=== PATIENT | female | born 1940 | race Caucasian/White ===

== ENCOUNTER 2017-07-25 21:18 | Emergency (ER) | payer MEDICAID, OTHER ==
[~2017-07-25] VITALS: Ht 160 cm; Wt 56.0 kg
[2017-07-25 21:22] VITALS: Ht 160 cm; Wt 56.0 kg
[2017-07-26] MEDS ORDERED: SULF1TAB31 PO (01:21)
[2017-07-26] MEDS ORDERED: CEPH250S33 PO (01:21)
[2017-07-26] MEDS ORDERED: [UNRECOGNIZED DRUG - OTHER] (01:21)
[2017-07-26] MEDS ORDERED: ENAL2.5T PO (01:21)
--- NOTE | 2017-07-26 01:24 | ERD ---
ER Documentation Chief Complaint Date/Time DATE: 07/26/17 TIME: 01:14 Chief Complaint Had incision and drainage done last here for reevaluation HPI 76-year-old female here in emergency department for reevaluation of the wound on the right lower leg, patient had an incision and drainage done 4 days ago, was diagnosed of an abscess after being back. Patient is currently on antibiotics, Keflex and Bactrim, they've been taking the medications but with only mild relief. Patient seems to have more swollen right lower leg, it seems to be not getting better per family. Patient does not have any fever or chills. Patient discussed the pain as throbbing pain, for/10 scale, and touching the area. Iodoform is still in place. ROS All systems reviewed and are negative except as per history of present illness. Medications Home Meds Reported Medications Cephalexin* (Cephalexin* Susp) Unknown Strength Susp.recon, PO Q6, #1 BOTTLE 07/26/17 Sulfamethoxazole/Trimethoprim* (Bactrim Ds* Tablet) Unknown Strength Tablet, PO DAILY, TAB 07/26/17 Enalapril Maleate* (Enalapril Maleate*) Unknown Strength Tablet, PO BID, TAB 07/26/17 [metformin-glimeperi] Unknown Strength No Conflict Check 07/26/17 Allergies Allergies: Coded Allergies: No Known Allergy (Unverified , 07/26/17) PMhx/Soc History of Surgery: Yes (cholecystectomy) Hx Miscellaneous Medical Probl: Yes (dM, HTN) Hx Alcohol Use: No Hx Substance Use: No Hx Tobacco Use: No Smoking Status: Never smoker FmHx Family History: diabetes Physical Exam Vitals Vital Signs Date Time Temp Pulse Resp B/P Pulse Ox O2 Delivery O2 Flow Rate FiO2 07/25/17 21:22 98.6 84 18 148/70 98 Physical Exam GENERAL: The patient is well developed and appropriate for usual state of health, in no apparent distress. CHEST: Clear to auscultation bilaterally. There are no rales, wheezes or rhonchi. HEART: Regular rate and rhythm. No murmurs, clicks, rubs or gallops. No S3 or S4. ABDOMEN: Soft, nontender and nondistended. Good bowel sounds. No rebound or guarding. No gross peritonitis. No gross organomegaly or masses. No Molina sign or McBurney point tenderness. BACK: No midline or flank tenderness. EXTREMITIES: Equal pulses bilaterally. There is no peripheral clubbing, cyanosis or edema. No focal swelling or erythema. Full range of motion. Grossly neurovascularly intact. NEURO: Alert and oriented. Cranial nerves 2-12 intact. Motor strength in all 4 extremities with 5/5 strength. Sensation grossly intact. Normal speech and gait. SKIN: Noted 3 cm diameter erythematous indurated area on the right lower leg, with iodoform in place, noted right lower leg swelling surrounding it. No fluctuance noted. There is no apparent rash or petechia. The skin is warm and dry. HEMATOLOGIC AND LYMPHATIC: There is no evidence of excessive bruising or lymphedema. No gross cervical, axillary, or inguinal lymphadenopathy. Results 24 hrs Current Medications Medications (Trade) Dose Ordered Sig/Raymundo Route PRN Reason Start Time Stop Time Status Last Admin Dose Admin Clindamycin HCl/ Dextrose (Cleocin 600 Mg/ D5W (Pmx)) 50 ml @ 50 mls/hr ONCE IVPB 07/26/17 01:30 07/26/17 02:29 Tramadol HCl (Ultram) 50 mg ONCE ONCE PO 07/26/17 01:30 07/26/17 01:31 Patient was given medication for pain here in emergency department, after treatment, patient verbalized feeling much better. Patient's pain is improved.IV clindamycin was given here in The emergency department, tolerated medication well. Procedures/MDM Medical decision making: Patient's symptoms most likely consistent with a soft tissue abscess, the dressing was changed, new iodoform was placed. No symptoms of any sepsis at this time, patient appears well and is hemodynamically stable, seems to be not improving after taking Bactrim and Keflex, will change antibiotics to clindamycin, patient was also given IV clindamycin here in emergency department. Patient was advised to return in 48 hours for reevaluation of symptoms and dressing change. The symptoms of any neurovascular compromise. Low suspicion for a myelitis. Low suspicion for any septic arthritis. Patient was given for clindamycin, tramadol for pain, ibuprofen for mild to moderate pain, is advised to follow-up here in 48 hours. Disposition: Home. Stable. Departure Diagnosis: Primary Impression: Soft tissue abscess Condition: Stable Patient Instructions: Abscess, Incision And Drainage Additional Instructions: return 2 days for recheck and dressing change, stop bactrim and keflex, start new antibiotics TANISHA STACK NP Jul 26, 2017 01:24
[2017-07-26] MEDS ORDERED: CLIN-73 PO (01:25)
[2017-07-26] MEDS ORDERED: IBUP400T22 PO (01:25)
[2017-07-26] MEDS ORDERED: TRAM50TA2 PO (01:25)
[2017-07-26] MEDS ORDERED: CLINDAMYCIN 600 MG/D5W (PMX) 50 ML IVPB SCH (01:30)
[2017-07-26] MEDS ORDERED: traMADol 50 MG TAB PO ONE (01:30)
== END 2017-07-26 04:11 | disposition home or self-care (01) ==
LOC: FTE 21:18
DX: L02.415 Cutaneous abscess of right lower limb (principal); E11.9 Type 2 diabetes mellitus without complications; I10 Essential (primary) hypertension
CPT/HCPCS: 96374; Z7502; Z7610

== ENCOUNTER 2017-07-28 18:24 | Emergency (ER) | payer OTHER ==
[~2017-07-28] VITALS: Ht 160 cm; Wt 74.6 kg
[~2017-07-28 18:24] MED LIST: CEPH250S33 PO; CLIN-73 PO; ENAL2.5T PO; IBUP400T22 PO; SULF1TAB31 PO; TRAM50TA2 PO; [UNRECOGNIZED DRUG - OTHER]
[2017-07-28 18:37] VITALS: Ht 160 cm; Wt 74.6 kg
--- NOTE | 2017-07-28 20:11 | ERD ---
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 Patient states that it is mildly painful and discharging. Foul odor. No fever, chills, abdominal pain, shortness of breath, chest pain. No skin changes. Has been taking antibiotics p.o. Was given IV antibiotics during last ER visit. Patient has no other complaints and describes no other associated manifestations. Nursing notes have been reviewed and are consistent with history given. (MATTHEW SANTO PA-C) ROS All systems reviewed and are negative except as per history of present illness. (CARROLL WARNER MD) Medications Home Meds Active Scripts Tramadol HCl (Tramadol HCl) 50 Mg Tablet, 50 MG PO Q6 for SEVERE PAIN LEVEL 7-10 , #20 TAB Prov:TANISHA STACK [employer] 07/26/17 Ibuprofen* (Motrin*) 400 Mg Tab, 400 MG PO Q6H Y for PAIN AND OR ELEVATED TEMP, #30 TAB Prov:TANISHA STACK [employer] 07/26/17 Clindamycin Hcl* (Clindamycin Hcl*) 300 Mg Capsule, 300 MG PO TID for 10 Days, CAP Prov:TANISHA STACK [employer] 07/26/17 Reported Medications Cephalexin* (Cephalexin* Susp) Unknown Strength Susp.recon, PO Q6, #1 BOTTLE 07/26/17 Sulfamethoxazole/Trimethoprim* (Bactrim Ds* Tablet) Unknown Strength Tablet, PO DAILY, TAB 07/26/17 Enalapril Maleate* (Enalapril Maleate*) Unknown Strength Tablet, PO BID, TAB 07/26/17 [metformin-glimeperi] Unknown Strength No Conflict Check 07/26/17 Allergies Allergies: Coded Allergies: No Known Allergy (Unverified , 07/26/17) PMhx/Soc History of Surgery: Yes (cholecystectomy) Hx Miscellaneous Medical Probl: Yes (dM, HTN) Hx Alcohol Use: No Hx Substance Use: No Hx Tobacco Use: No (CARROLL WARNER MD) Physical Exam Vitals Vital Signs Date Time Temp Pulse Resp B/P Pulse Ox O2 Delivery O2 Flow Rate FiO2 07/28/17 18:37 99.3 80 18 151/81 99 (MATTHEW SANTO PA-C) Physical Exam Const: [] Head: Atraumatic Eyes: Normal Conjunctiva ENT: Normal External Ears, Nose and Mouth. Neck: Full range of motion..~ No meningismus. Resp: Clear to auscultation bilaterally Cardio: Regular rate and rhythm, no murmurs Abd: Soft, non tender, non distended. Normal bowel sounds Skin: No petechiae or rashes Back: No midline or flank tenderness Ext: No cyanosis, or edema Neur: Awake and alert Psych: Normal Mood and Affect (CARROLL WARNER MD) Physical Exam Const: Healthy-appearing. Well-nourished. Well-developed. No acute distress. Skin: 5 mm opening on the lateral right ankle. Mild erythema. No spreading or streaking noted. No induration or fluctuance noted. Draining yellow pus. 1 mm pus was expressed. Wound is still open. No need for packing.. No petechiae or rashes. Good turgor. Ext: No cyanosis or edema noted. Head: Normocephalic. As noted in skin exam. Eyes: Non-injected; No scleral erythema, or discharge. EOMI and JULIA bilaterally. Ears: Normal External Ears, EACs clear, TM normal bilaterally without erythema. Nose: Normal nose without discharge, septal deviation, or sinus tenderness. Oral: No oral edema visualized. Mucous membranes moist and pink. Neck: No cervical lymphadenopathy, or masses. Trachea midline. Supple ~ No meningismus. Pulm: Good air movement in upper and lower respiratory tracts. No dyspnea, stridor, tripoding or drooling. Clear to auscultation bilaterally. Cardio: Regular rate and rhythm. No JVD grossly observed. Radial and posterior tibial pulses 2+ bilaterally. No cyanosis. Capillary refill less than 2 seconds. Abd: Soft, non tender, non distended. No guarding. Normal bowel sounds. MS: Normal motor strength, normal tone with gross examination. Back: No midline or flank tenderness. Neur: Neurovascularly intact bilaterally. Awake, alert and oriented x3. (MATTHEW SANTO PA-C) Procedures/ETHAN VALERIO note- Subjective-patient presents for recheck on her right lower extremity abscess related to infected cat bite. She has incision and drainage is taking antibiotics. Agree with detailed history and physical of mid-level provider Objective 5 healing right incision and drainage site on the right lower extremity. Minimal surrounding redness without significant erythema, induration or active discharge with Assessment-wound check an infected cat bite incision and drainage right lower extremity. Healing appropriately without complication Plan-continue antibiotics and follow-up with primary doctor for wound check again in 2 3 days, otherwise return sooner for fevers, worsening redness, new worsening symptoms (CARROLL WARNER MD) 76-year-old female presenting for wound check. No packing and wound. Expressing yellow pus. Wound is wrapped on initial presentation. Well- appearing. No signs of spreading or systemic infection. Patient is currently taking oral antibiotics. I recommended that she continue oral antibiotics. No need for IV antibiotics at this time. Little suspicion for serious bacterial infection, sepsis, bacteremia. Most likely diagnosis is well healing superficial abscess of the right ankle. I spoke to my attending Dr. Kelly who agrees with assessment and plan.I have spoke with the patient regarding their condition and future management. They have verbally responded that they understand their status and treatment plan. The patients vitals are stable, and their current condition is appropriate for discharge. The patient will be given discharge instructions with return precautions. (MATTHEW SANTO PA-C) Departure Diagnosis: Primary Impression: Encounter for wound re-check Condition: Stable Additional Instructions: Maria G un seguimiento con [facility] dentro de los prximos 1-3 martínez para fabian evaluaci n ms completa y fabian posible derivacin a un especialista. Devuelva el departamento de emergencia inmediatamente si los sntomas empeoran o cambian. Si tiene alguna pregunta con respecto a los medicamentos, consulte con [facility] farmac utico o con nosotros antes de salir. Si se producen reacciones adversas mientras charly bharti medicamentos, suspenda el tratamiento y regrese inmediatamente al servicio de urgencias. Rodriguez Hevia bharti medicamentos segn las indicaciones y complete el curso completo del tratamiento. CARROLL WARNER MD Jul 28, 2017 20:11 MATTHEW SANTO PA-C Jul 28, 2017 20:54
== END 2017-07-28 20:47 | disposition home or self-care (01) ==
LOC: FTE 18:24
DX: Z48.01 Encounter for change or removal of surgical wound dressing (principal); E11.9 Type 2 diabetes mellitus without complications; I10 Essential (primary) hypertension; Z79.84 Long term (current) use of oral hypoglycemic drugs
CPT/HCPCS: 99281